=== PATIENT | female | born 1940 | race Caucasian/White ===

== ENCOUNTER 2016-11-04 11:48 | Day surgery (SDCO) | payer MEDICARE, OTHER ==
[2016-11-04 13:29] LABS: BASOPHIL 0.5 % (0-2); EOSINOPHIL 0.5 % (0-7); HCT 40.4 % (37.0-47.0); HGB 13.2 g/dl (12.5-16.0); LYMPHOCYTE 6.9 % (15-48); MCH 32.1 pg (25.0-31.0); MCHC 32.7 g/dL (32.0-36.0); MCV 98.3 fL (78.0-100.0); MPV 11.1 fL (6.0-9.5); NEUTROPHIL 80.1 % (41-80); PLT 162 K/uL (150-400); RBC 4.11 M/uL (4.20-5.40); RDW 12.9 % (11.5-14.0); WBC 6.5 K/uL (4.0-10.5)
[2016-11-04 14:17] LABS: BILIRUBIN NEGATIVE (NEGATIVE); BLOOD NEGATIVE Ery/uL (NEGATIVE); CLARITY CLEAR (CLEAR); COLOR STRAW (YELLOW); GLUCOSE (U) NORMAL (NORMAL); KETONE (U) NEGATIVE (NEGATIVE); LEUKOCYTES NEGATIVE Leu/uL (NEGATIVE); NITRITE NEGATIVE (NEGATIVE); PROTEIN NEGATIVE (NEGATIVE); SPECIFIC GRAVITY 1.015 (1.001-1.030)
[2016-11-04 15:59] LABS: ALBUMIN 3.8 g/dL (3.4-4.8); BILIRUBIN - DIRECT 0.2 mg/dL (0.0-0.2); BILIRUBIN - TOTAL 0.3 mg/dL (0.1-1.0); GLOBULIN (CALCULATION) 3.1 g/dL (2.2-4.2); TOTAL PROTEIN 6.9 g/dL (6.4-8.3)
[2016-11-04 16:33] LABS: CKMB 2.4 ng/mL (0.97-4.94); TROPONIN T 0.054 ng/mL
[2016-11-05] MEDS ORDERED: SYNTHROID125 MCG PO (10:03)
[2016-11-05] MEDS ORDERED: ISOSORBIDE MON120 MG PO (10:03)
[2016-11-05] MEDS ORDERED: TAMIFLU 75MG CA75 MG PO (10:03)
[2016-11-05] MEDS ORDERED: ATIVAN1 MG PO (10:04)
[2016-11-05] MEDS ORDERED: SIMVASTATIN80 MG PO (10:04)
== END 2016-11-05 11:34 | disposition home or self-care (01) ==
LOC: FER 11:48 → FMS 17:10
PROVIDERS: Emergency Medicine; ADMIT Internal Medicine
DX: J11.1 Influenza due to unidentified influenza virus with other respiratory manifestations (principal); I25.10 Atherosclerotic heart disease of native coronary artery without angina pectoris; I10 Essential (primary) hypertension; E78.5 Hyperlipidemia, unspecified; E03.9 Hypothyroidism, unspecified; R55 Syncope and collapse; I95.9 Hypotension, unspecified; Z90.49 Acquired absence of other specified parts of digestive tract; Z96.653 Presence of artificial knee joint, bilateral; Z87.891 Personal history of nicotine dependence; Z79.899 Other long term (current) drug therapy
CPT/HCPCS: 36415; 71010; 80048; 80076; 81003; 82550; 82553; 83605; 84443; 84484; 85025; 87040; 93005; G0378